=== PATIENT | male | born 2000 | race Two or more races ===

== ENCOUNTER 2022-01-08 23:21 | Emergency (ER) | payer OTHER ==
[2022-01-08] MEDS ORDERED: Albuterol/Ipratropium 3.0-0.5 MG/3 ML Neb Soln NEB ONE (23:38)
[2022-01-08] MEDS ORDERED: methylPREDNISolone Sodium Succinate 125 MG/2 ML SDV IM ONE (23:38)
[2022-01-09] MEDS ORDERED: Azithromycin 500 MG Tab PO STA (00:10)
== END 2022-01-09 00:30 | disposition home or self-care (01) ==
LOC: FB.ED 23:21
DX: J45.901 Unspecified asthma with (acute) exacerbation (principal); Z91.018 Allergy to other foods; Z79.899 Other long term (current) drug therapy
CPT/HCPCS: 94640; 96372; 99281; 99284; A9270; J2930; J7620